=== PATIENT | male | born 1960 | race Caucasian/White ===

== ENCOUNTER 2021-09-01 11:53 | Emergency (ER) | payer BC ==
[2021-09-01] MEDS ORDERED: SODIUM CHLORIDE 0.9% 50 ML IVPB ONE (12:15)
[2021-09-01] MEDS ORDERED: CASIRIVIMAB/IMDEVIMAB (EUA) 1,200 MG in SODIUM CHLORIDE 0.9% 100 ML IVPB ONE (12:15)
[2021-09-01 12:22] VITALS: BP 185/98; PULSE 83; TEMP 97.9
--- NOTE | 2021-09-01 12:43 | ED ---
General Adult HPI - General Stated complaint: covid+/antibodies Time Seen by Provider: 09/01/21 11:54 Source: patient, RN notes reviewed Mode of arrival: ambulatory Limitations: no limitations - History of Present Illness Initial comments: This is a 61-year-old male presents emergency Department chief complaint of COVID-19. Patient started with symptoms last 24 hours, tested positive today. Patient has underlying cardiovascular disease. Patient has mild cough and cold- like symptoms. Stricture fevers chills no GI symptoms no chest pain no shortness breath. - Related Data Home Medications Medication Instructions Recorded Confirmed Atorvastatin [Lipitor] 20 mg PO DAILY 07/22/14 07/22/14 Hydrocodone/Acetaminophen [Carlos 1 each PO TID PRN 07/22/14 07/22/14 10-325] lisinopriL [Prinivil] 20 mg PO DAILY 07/22/14 07/22/14 Previous Rx's Medication Instructions Recorded Cephalexin [Keflex] 500 mg PO Q8HR #21 cap 07/22/14 Hydrocodone/Acetaminophen 1 each PO Q4HR PRN #20 tablet 07/22/14 [Hydrocodon-Acetaminophen 5-325] Allergies Allergy/AdvReac Type Severity Reaction Status Date / Time nitrofurantoin Allergy Unknown Verified 09/01/21 12:16 macrocrystalline [From Macrodantin] Review of Systems ROS Statement: Those systems with pertinent positive or pertinent negative responses have been documented in the HPI. ROS Other: All systems not noted in ROS Statement are negative. Past Medical History Past Medical History: Coronary Artery Disease (CAD), Hyperlipidemia, Hypertension, Myocardial Infarction (OR) History of Any Multi-Drug Resistant Organisms: None Reported Past Surgical History: Heart Catheterization With Stent, Hernia Repair Additional Past Surgical History / Comment(s): LITHOTRIPSY Past Psychological History: No Psychological Hx Reported Smoking Status: Never smoker Past Alcohol Use History: None Reported Past Drug Use History: None Reported General Exam Limitations: no limitations General appearance: alert, in no apparent distress Head exam: Present: atraumatic, normocephalic, normal inspection Eye exam: Present: normal appearance, PERRL, EOMI. Absent: scleral icterus, conjunctival injection, periorbital swelling ENT exam: Present: normal exam, mucous membranes moist Neck exam: Present: normal inspection, full ROM. Absent: tenderness, meningismus, lymphadenopathy Respiratory exam: Present: normal lung sounds bilaterally. Absent: respiratory distress, wheezes, rales, rhonchi, stridor Cardiovascular Exam: Present: regular rate, normal rhythm, normal heart sounds. Absent: systolic murmur, diastolic murmur, rubs, gallop, clicks GI/Abdominal exam: Present: soft, normal bowel sounds. Absent: distended, tenderness, guarding, rebound, rigid Course Vital Signs 09/01/21 12:17 Temperature 97.9 F Pulse Rate 83 Respiratory 18 Rate Blood Pressure 185/98 O2 Sat by Pulse 99 Oximetry Medical Decision Making - Medical Decision Making Patient received monoclonal antibodies was discharged in stable condition. Disposition Clinical Impression: COVID-19 Disposition: HOME SELF-CARE Condition: Stable Instructions (If sedation given, give patient instructions): Coronavirus Disease 2019 (COVID-19) Additional Instructions: Please return to the Emergency Department if symptoms worsen or any other concerns. Is patient prescribed a controlled substance at d/c from ED?: No Referrals: Nonstaff,Physician [Primary Care Provider] - 1-2 days Time of Disposition: 12:43
[2021-09-01 13:43] VITALS: RESP 16
== END 2021-09-01 14:25 | disposition home or self-care (01) ==
LOC: EC 11:53
DX: U07.1 COVID-19 (principal); I10 Essential (primary) hypertension; I25.10 Atherosclerotic heart disease of native coronary artery without angina pectoris; I25.2 Old myocardial infarction; E78.5 Hyperlipidemia, unspecified; Z88.1 Allergy status to other antibiotic agents
CPT/HCPCS: 99283 ×2; 96361 ×2; M0243; Q0243